=== PATIENT | female | born 1990 | race Caucasian/White ===

== ENCOUNTER 2022-11-08 14:01 | Inpatient (IN) | payer MEDICAID, SELFPAY ==
[2022-11-08] VITALS (48 sets, daily range): BP systolic 103–186; BP diastolic 69–106; PULSE 56–88; RESP 16–18; TEMP 36.6–36.9; O2SAT 97–99; BMI 31.1
[2022-11-08] MEDS: AMPICILLIN 2 GM in 0.9 % SODIUM CHLORIDE Mini-bag 100 ML IVPB (14:24)
[2022-11-08] MEDS: LACTATED RINGERS 1000 ML 1,000 ML 125 ML IV (14:24)
[2022-11-08] MEDS: LABETALOL HCL 5 MG/ML inj IVP ×2 (14:49→19:16)
[2022-11-08] MEDS: MAGNESIUM IV 4 GM/100 ML PIGGYBACK IVPB (14:57)
[2022-11-08 15:06] LABS: Hemoglobin* 11.8 gm/dL (12.0-16.0); Mean Corpuscular HGB Conc 34 gm/dL (32-36); Mean Corpuscular Hemoglobin 30 pg (26-34); Mean Corpuscular Volume 90 fL (80-100); Platelet Count* 229 K/uL (140-440); Red Blood Count 3.88 m/uL (4.00-5.20); White Blood Count* 7.26 K/uL (4.50-11.00)
[2022-11-08 15:10] LABS: Slide Review Reflex No
[2022-11-08] MEDS: LACTATED RINGERS 1000 ML 1,000 ML 75 ML IV (15:10)
--- NOTE | 2022-11-08 15:10 | P.OBHP_ITS ---
OB - H&P: HPI Labor/Induction History of Present Illness Time Seen by Provider: 15:00 Date Seen: 11/08/22 Chief Complaint: The patient is a 31 year old 3 para 2 at 39 3/7 by 9 4/7 wk US not c/w LMP, who presents to the Center reporting contractions started around 9am. Chief complaint: Maternity : 3 Para: 1 Narrative: Petra Holt is a 31 year old 3 para 2 at 39 3/7 by 9 4/7 wk US not c/w LMP, who presents to the Center reporting contractions started around 9am. She noted some vaginal bleeding this morning and initially went to [place] per OB RN recommendation due to bleeding. She was told it was normal bloody show and was found to be 3cm and given okay to come here for delivery. She reports her bp was elevated there. She does not have a hx of elevated bp or preeclampsia in this or prior . No headaches today. She reports few seconds of seeing circles earlier today but that resolved. No edema. no abdominal pain. No recent illness. History of Present Dating criteria: based on 1st trimester US only care: good care (Initial care at [facility], transferred to [facility] at 25wks. ) Ultrasounds: normal mid trimester US (but with EFW 98% on anatomy US) and other (Repeat US for growth 09/01/22 showed 30wks and EFW 66% (abdominal circumference noted to be 85%) and radiologist noted good interval growth) Medical complications: none Labs Blood type: A (+) positive Rubella: immune RPR/VDLR: nonreactive GBS status: positive HBsAG: negative Meds Home Medications and Allergies Allergies Allergy/AdvReac Type Severity Reaction Status Date / Time No Known Drug Allergies Allergy Verified 11/08/22 15:38 OB - H&P: Exam Physical Exam: Vital signs: Pulse BP 65 149/86 H 11/08/22 15:02 11/08/22 15:02 Constitutional: Constitutional: no acute distress and cooperative Routine HEENT Exam: Head: Present atraumatic, normal inspection and normocephalic Eye: Present normal appearance ENT: Present mucous membranes moist Routine Neck Exam: Neck: Present normal inspection; Absent lymphadenopathy Routine Respiratory Exam: Respiratory: Present CTA bilaterally Routine Cardiovascular Exam: Cardiovascular: RRR Routine Exam: Comments: Per RN, 5cm on arrival here (was 3cm when stopped at [place] [facility] 2 hours prior) Detailed Labor and Delivery Exam: Patient Gravid: Yes Dilation (cm): 5 Comments: Ctxs q3-5min Fetus (Single): Amniotic Membrane Status: intact Heart Rate Baseline: 130 Monitor Accelerations: Present Monitor Decelerations: None Nail Polish Brush Machine Feeder Variability: Moderate (6-25) Routine Extremities Exam: Extremities: Absent pedal edema Routine Psychiatric Exam: Present normal affect, normal thought process, cooperative, good insight and good judgment OB - Problem Based A/P Additional Plan (1) Severe preeclampsia: Status: Acute Plan: Severe preeclampsia by BP criteria. Labetalol given. preeclampsia labs drawn and pending. Magnesium started. labs [id number]. Already started on abx for GBS prophy laxis. discussed severe preeclampsia with pt and she reported good understanding and no ?'s. Dr Vegas notified. (2) Term : Status: Acute Delivery/Labor/Induction Plan Plan: expectant management
[2022-11-08 15:27] LABS: Blood Urea Nitrogen* 6 mg/dL (5-24); Creatinine* 0.4 mg/dL (0.5-1.5); Est. Creatinine Clearance* 162.65; Estimated Glomerular Filt Rate 136 ml/min
[2022-11-08 15:28] LABS: Alanine Aminotransferase* 15 U/L (4-35); Aspartate Amino Transferase* 23 U/L (12-35)
--- NOTE | 2022-11-08 17:54 | PM.OBPNL ---
Subjective Time Seen by Provider: 17:54 Date Seen: 11/08/22 Narrative: pt reports ctxs increasing. no headaches. no concerns. Just got up to bathroom and nurse going to recheck bp. Objective Vital Signs: Last Vital Signs Temp 97.9 F 11/08/22 16:40 Pulse 79 11/08/22 17:38 Resp 16 11/08/22 16:40 BP 160/101 H 11/08/22 17:38 Contractions Monitor mode: External Contraction Frequency: q3-5min Contraction pattern: Irregular Assessment Heart Rate Baseline: 130 Monitor Accelerations: Present Monitor Decelerations: None Plan Plan: Pt with severe preeclampsia by BP criteria, on magnesium, required 1 dose of labetalol. Now due for bp recheck due to most recent BP 160/101. Initial preeclamptic labs okay. recheck [id number] 4 hours of abx olivia be 7pm, will recheck cervix then, sooner if needed
[2022-11-08] MEDS: AMPICILLIN 1 GM in 0.9 % SODIUM CHLORIDE Mini-bag 100 ML IVPB ×2 (18:34→22:51)
--- NOTE | 2022-11-08 18:49 | P.OBPN_ITS ---
Subjective Time Seen by Provider: 18:50 Date Seen: 11/08/22 Narrative: Pt reports ctxs increasing. 1st dose abxs complete. She does not have any ?'s. Objective Vital Signs: Last Vital Signs Temp 97.9 F 11/08/22 16:40 Pulse 76 11/08/22 18:28 Resp 16 11/08/22 16:40 BP 131/79 11/08/22 18:28 Pelvic Exam Dilation (cm): 5 Effacement (%): 100 Station: -2 Comments: bulging bag Contractions Monitor mode: External Contraction Frequency: q4-5min Contraction pattern: Regular Contraction intensity: Moderate Assessment Assessment: early labor Heart Rate Baseline: 130 Orchestra Director Variability: Moderate (6-25) Monitor Decelerations: None Plan Plan: Cervix overall unchanged. Abx on board to 4+hours now, discussed AROM and pt in agreement. AROM with meconium stained fluid. Discussed with pt.
[2022-11-08 20:52] LABS: Hematocrit 36.2 % (33.0-51.0); Mean Corpuscular HGB Conc 33 gm/dL (32-36); Mean Corpuscular Hemoglobin 30 pg (26-34); Mean Corpuscular Volume 91 fL (80-100); Platelet Count* 250 K/uL (140-440); Red Blood Count 3.98 m/uL (4.00-5.20); White Blood Count* 8.11 K/uL (4.50-11.00)
[2022-11-08 20:55] LABS: Slide Review Reflex No
[2022-11-08 21:06] LABS: Creatinine* 0.6 mg/dL (0.5-1.5); Est. Creatinine Clearance* 108.43; Estimated Glomerular Filt Rate 124 ml/min
[2022-11-08 21:07] LABS: Alanine Aminotransferase* 15 U/L (4-35); Aspartate Amino Transferase* 23 U/L (12-35); Blood Urea Nitrogen* 8 mg/dL (5-24)
[2022-11-08] MEDS: OXYTOCIN 30 unit/500 ML in NS 30 UNIT/500 ML BAG IVPB (22:48)
[2022-11-09] VITALS (80 sets, daily range): BP systolic 78–181; BP diastolic 47–106; PULSE 68–100; RESP 14–16; TEMP 36.2–36.8; O2SAT 90–100
[2022-11-09] MEDS: AMPICILLIN 1 GM in 0.9 % SODIUM CHLORIDE Mini-bag 100 ML IVPB (02:47)
--- NOTE | 2022-11-09 02:52 | P.OBPN_ITS ---
Subjective Time Seen by Provider: 02:50 Date Seen: 11/09/22 Narrative: nursing notifed me of 1min decl down to 60bpm, resolved with position changes and stopping pitocin. pt requesting epidural. No headache or vision changes. Has required total 2 doses labetalol Objective Vital Signs: Last Vital Signs Temp 97.7 F 11/09/22 02:08 Pulse 75 11/09/22 02:44 Resp 16 11/08/22 19:20 BP 161/104 H 11/09/22 02:44 Pulse Ox 100 11/09/22 02:19 Pelvic Exam Dilation (cm): 8 Effacement (%): 100 Station: 0 Comments: per RN check Contractions Monitor mode: External Contraction Frequency: q2-3 Contraction pattern: Regular Contraction intensity: Strong/Firm Assessment Assessment: active labor Amniotic Membrane Status: AROM Heart Rate Baseline: 130 Paper Testing Supervisor Variability: Moderate (6-25) Monitor Accelerations: Present Monitor Decelerations: Prolonged (60sec decel down to 60bpm) Plan Plan: 31 year old 3 para 2 at 39 4/7 here in active labor with severe preeclampsia on magnesium, with recent prolonged decel, now recovered 1. Severe preclampsia by BP criteria: on magnesium, BP now mtg labetalol criteria, will just give 10mg dose now as prev down to 118/70 after labetolol and is getting epidural and do not want to bottom out bp. Will keep monitoring closely and redose as needed. Next set preeclamptic labs 3:45am 2. GBS+, on abxs 3. pt earlier required augmentation with pitocin to get back in active labor, now off due to decel. Will restart if needed once FHT's remain stable. discussed with pt.
[2022-11-09] MEDS: LABETALOL HCL 5 MG/ML inj 10 MG IVP (03:01)
[2022-11-09] MEDS: LIDOCAINE 2% (PF) 5 ML VIAL EPIDURAL (03:25)
[2022-11-09] MEDS: ROPIVACAINE 0.2% 100 ml 100 ML 12 MG EPIDURAL (03:25)
--- NOTE | 2022-11-09 03:33 | P.ANBPRC_ITS ---
[facility] Medical History (Updated 11/08/22 @ 15:44 by Cordelia Boo DO) depression ?F53.0 - depression (ICD-10) Surgical History (Updated 11/08/22 @ 15:30 by Cordelia Boo DO) History of ankle surgery ?Z98.890 - Other specified postprocedural states (ICD-10) Social History What is your current living situation?: I presently have a place to live Problems where you live: no known problems In the past 12 months, utilities in danger of being shut off: no In the past 12 mos, have been you worried that your food would run out before you had money to buy more?: never true In the past 12 mos, the food you bought just didn't last and you didn't have money to buy more?: never true Smoking Status: Never smoker How often does anyone, including family, friends and others, physically hurt you : never How often does anyone, including family, friends and others, insult or talk down to you: never How often does anyone, including family, friends and others, threaten you with harm: never How often does anyone, including family, friends and others, scream or curse at you: never Meds Home Medications and Allergies Home Medications Medication Instructions Recorded Confirmed Type escitalopram oxalate 20 mg tablet 20 mg PO QAM 11/08/22 11/08/22 History vitamin with calcium 1 tab PO DAILY 11/08/22 11/08/22 History no.72-iron 27 mg-folic acid 1 mg tablet ( Vitamins Plus Low Iron) Allergies Allergy/AdvReac Type Severity Reaction Status Date / Time No Known Drug Allergies Allergy Verified 11/08/22 15:38 Results Labs Labs: Laboratory Results - last 24 hr 11/08/22 11/08/22 15:00 20:45 WBC 7.26 8.11 RBC 3.88 L 3.98 L Hgb 11.8 L 12.0 Hct 35.0 36.2 MCV 90 91 MCH 30 30 MCHC 34 33 Plt Count 229 250 BUN 6 8 Creatinine 0.4 L 0.6 Estimated Creat Clear 162.65 108.43 Estimated GFR 136 124 AST 23 23 ALT 15 15 Blood Type A Positive Antibody Screen NEGATIVE Vital Signs Vital Signs: Last Vital Signs Temp 97.7 F 11/09/22 02:08 Pulse 90 11/09/22 03:32 Resp 16 11/08/22 19:20 BP 119/86 11/09/22 03:32 Pulse Ox 96 11/09/22 03:31 Weight: 77.111 kg Height: 157.48 cm Anesthesia Procedures Epidural Insertion Patient Location: OB Start Time: 03:00 Stop Time: 04:00 Start Date: 11/09/22 Stop Date: 11/09/22 Reason for Block: primary anesthetic Patient Position: sitting Performed By: Baldo Martinez Preanesthetic Checklist: IV checked, risks and benefits discussed, surgical consent, monitors and equipment checked, pre-op evaluation, timeout performed and anesthesia consent Prep: chlorhexidine gluconate Monitoring: blood pressure monitoring, quality improvement coordinator (rn), continuous pulse oximetry and heart rate Approach: midline Vertebral Space: lumbar (1-5) Needle Type: Tuohy needle Injection Technique: continuous catheter (catheter) Needle gauge: 17 Needle Length (cm): 10 cm Needle Insertion Depth (cm): 5 Catheter Gauge: 19 Catheter Type: multi-orifice Catheter at skin depth (cm): 10 Test Dose Result: negative and lidocaine 1.5% with epinephrine 1 to 200,000
[2022-11-09] MEDS: PHENYLEPHRINE 100 MCG/ML SYRINGE IVP ×3 (03:52→04:04)
[2022-11-09] MEDS: ePHEDrine sulfate 5 MG/ML inj 10 MG IVP ×6 (04:10→05:16)
--- NOTE | 2022-11-09 05:10 | P.OBPN_ITS ---
Subjective Date Seen: 11/09/22 Narrative: Pt has been having recurrent variables with contractions since epidural with low bp's and we have been monitoring closely. Has received multiple doses of phenylephrine/ephedrine. Epidural as turned off anesthesia and he rec waiting 15min and then seeing if can turn back on lower dose. She has good pain control. She initially had N/V with the hypotension but the N/V resolved. Pitocin remains off. She was rechecked by RN during this and remains 8cm. Objective Vital Signs: Last Vital Signs Temp 97.7 F 11/09/22 02:08 Pulse 95 11/09/22 05:07 Resp 16 11/08/22 19:20 BP 103/59 L 11/09/22 05:07 Pulse Ox 97 11/09/22 03:51 Pelvic Exam Dilation (cm): 8 Effacement (%): 100 Station: 0 Contractions Monitor mode: External Contraction pattern: Regular Contraction intensity: Strong/Firm Assessment Amniotic Membrane Status: AROM Heart Rate Baseline: 130 Motor Coach Chauffeur Variability: Moderate (6-25) Monitor Decelerations: Variable (60sec decel down to 60bpm) Plan Plan: Continues to have recurrent variables. Anesthesia recommended leaving epidural off for 15more minutes and see if improves further. Will also try amnioinfusion. Remains off pitocin and as of last check, unchanged. Likely need restart but need improved FHT's before restarting pitocin. Discussed all the above with pt.
[2022-11-09] MEDS: CEFAZOLIN 2 GM INJ IVP (05:55)
[2022-11-09 06:04] LABS: Hematocrit 38.3 % (33.0-51.0); Hemoglobin* 12.5 gm/dL (12.0-16.0); Mean Corpuscular HGB Conc 33 gm/dL (32-36); Mean Corpuscular Hemoglobin 30 pg (26-34); Mean Corpuscular Volume 93 fL (80-100); Platelet Count* 256 K/uL (140-440); Red Blood Count 4.13 m/uL (4.00-5.20); White Blood Count* 12.51 K/uL (4.50-11.00)
[2022-11-09 06:08] LABS: Slide Review Reflex No
[2022-11-09 06:13] LABS: Alanine Aminotransferase* 17 U/L (4-35); Aspartate Amino Transferase* 35 U/L (12-35); Blood Urea Nitrogen* 6 mg/dL (5-24); Creatinine* 0.5 mg/dL (0.5-1.5); Est. Creatinine Clearance* 130.12; Estimated Glomerular Filt Rate 129 ml/min
[2022-11-09] MEDS: LACTATED RINGERS 1000 ML 1,000 ML 75 ML IV ×3 (06:20→20:55)
--- NOTE | 2022-11-09 06:54 | SUR.OPER ---
EMERGENT CODE WHITE , VERBAL CONSENT W/D. MD NELY. PATIENT BROUGHT TO OR #5 PER CART BY OB RN's.? Patient positioned supine on OR #5 bed.? The perioperative?team supported arms bilaterally on arm boards.? Final approval of positioning by surgeon.
--- NOTE | 2022-11-09 07:18 | P.OBPRC_ITS ---
Procedure Time Seen by Provider: 05:53 Date of procedure: 11/09/22 Pre-op diagnosis: intolerance of labor Post-op diagnosis: same Procedure Done: only Will [facility] bill your pro fee for this procedure?: Yes Blood Loss Measurement Type: QBL Bakri Used: No Surgeon: Ascencion Anesthesia type: Epidural Findings: Thick meconium-stained fluid, live-born female , cephalic presentation, normal-appearing uterus with small anterior fundal subserosal fibroid, normal tubes and ovaries bilaterally. Procedure Description: PREOPERATIVE DIAGNOSES: 1. Intrauterine at 39 3/7 weeks' gestation. 2. Severe preeclampsia. 3. GBS positive. 4. intolerance of labor. POSTOPERATIVE DIAGNOSES: 1. Intrauterine at 39 3/7 weeks' gestation. 2. Severe preeclampsia. 3. GBS positive. 4. intolerance of labor. NAME OF PROCEDURE: Emergent primary low transverse section. SURGEON: Ascencion. ANESTHESIA: Epidural. TAP block. COMPLICATIONS: None. ESTIMATED BLOOD LOSS: 1019 mL. DRAINS: Tucker to gravity. FINDINGS: Live-born female , cephalic presentation, Apgars 6 and 8 at 1 and 5 minutes respectively. weight pending. Thick meconium stained amniotic fluid. Normal appearing uterus, tubes, and ovaries. INDICATIONS: The patient is a 31-year-old 3 para 2 who was admitted to the [facility] on 11/08/2022 in labor. She was diagnosed following admission was severe preeclampsia based on blood pressure criteria, and started on a magnesium sulfate drip. She was noted to be group B strep positive, and received IV antibiotics for group B strep prophylaxis. Her labor was managed by Dr. Boo. The patient received an epidural for analgesia at 3:18 a.m. on 11/09/2022. Subsequently, she had intermittent episodes of hypotension and received multiple doses of phenylephrine. This also precipitated intermittent severe variable decelerations of the heart rate tracing. I was called at 5:29 a.m. to come in to the hospital for a code white situation, following a 6 minute deceleration of the heart rate. I arrived into the operating room at 5:53 a.m., and found the patient in the left lateral recumbent position, with Tucker catheter already in place. heart tones were in the 120s by scalp electrode. The epidural was dosed for surgery, and the patient's abdomen was sterilely prepped. While I was scrubbing, there was another deceleration of the heart rate, so I made the decision to forego the vaginal prep and immediately prepare for surgery. I instructed a nurse to remove the scalp electrode, which was still attached to the scalp. PROCEDURE: Verbal consent was given for delivery. The patient was prepared and draped in the normal sterile fashion in the dorsal supine position with a leftward tilt. A Pfannenstiel skin incision was made with a scalpel at 0607. This incision was carried down to the underlying layer of fascia with the scalpel. The fascia was incised in the midline and the incision extended laterally. The superior and inferior aspects of the fascial incision were grasped with Haydee clamps, elevated and the underlying rectus muscles dissected off sharply. The rectus muscles were then in the midline. The anterior peritoneum was entered bluntly with a finger and stretched laterally. The Nehemias O retractor was then placed into the incision. The lower uterine segment was then incised in a transverse fashion with the scalpel. Upon entry into the uterus, thick meconium-stained amniotic fluid was noted. The uterine incision was extended laterally with blunt finger fractionation. The 's head was delivered atraumatically, followed by the remainder of the 's body at 0609. The nose and mouth were suctioned with the bulb suction. The cord was doubly clamped and cut, and the infant was handed off the field to Dr. Boo for evaluation. The placenta was delivered spontaneously with umbilical cord traction and fundal massage. The uterus was cleared of all clots and debris. There was some brief uterine atony that responded to bimanual massage. One thousand mL tranexamic acid was administered intravenously by anesthesia. The uterine incision was reapproximated in a running locking fashion with a 0 chromic suture. There was an extension of the hysterotomy incision on the left side into the left broad ligament that required 2 additional figure of X sutures for hemostasis of disrupted blood vessels. The broad ligament peritoneum was then reapproximated to close the defect in a running locking fashion with a 2-0 chromic suture. A 2nd layer of 0 chromic was used to imbricate the hysterotomy incision in a horizontal fashion. The gutters were irrigated and suctioned. The uterus was exteriorized, and the posterior aspect of the left broad ligament was inspected. Sade was placed over the lower posterior uterine serosa as it looked raw but was not actively bleeding. The uterus was returned to the abdomen. All instruments and retractors were removed. The anterior peritoneum was reapproximated in a running fashion with a 3-0 Vicryl suture. The subfascial tissues were carefully inspected and hemostasis assured. The pyramidalis muscles were actively bleeding where disrupted, and hemostasis was obtained with 2 figure of X sutures on the right side, and electrocautery on the left. Sade was placed over the muscles inferiorly as well. The fascia was reapproximated in a running fashion with a looped 0 Maxon suture. The subcutaneous tissues were copiously irrigated. Hemostasis was assured. The skin was closed in a subcuticular fashion with 4-0 Vicryl. Exofin surgical glue and dressing were applied. The patient tolerated the procedure well. Sponge, lap, needle, and instrument counts were reported as correct x2. A TAP block was administered by Anesthesia under ultrasound guidance at the conclusion of the procedure. The patient was taken to the recovery room, awake, and in stable condition. She did receive 2 grams of IV Ancef preoperatively. The infant was taken to the nursery for further evaluation and subsequent transfer to [facility]. Complications: None. Condition: stable Disposition: floor
--- NOTE | 2022-11-09 07:45 | P.NB_ITS ---
Nerve Block Nerve Block Time Seen by Provider: :22 Date Seen: 11/09/22 Type of block requested by surgeon for post-operative analgesia: TAP Side: bilateral Time out performed: Yes Verification of patient name: Yes Verification of date of : Yes Site marking: not applicable Name of person performing procedure: Baldo Martinez Continuous monitoring Was continuous monitoring of O2 sat, B/P, playground monitor, recorded every 15 minutes?: Yes Procedure Checklist: sterile prep, needles and gloves Ultrasound guided. Images saved: Yes Medications given in 5ml increments after negative aspiration: Marcaine %: 0.25 mL: 30 Needle gauge: 20 and Exparel mL: 10 Needle gauge: 20 Patient tolerated procedure well: Yes Block Charges Block Charge (with Pro Fee): TAP Bilateral Use of Ultrasound Machine for Block: Yes- US Guidance/pain block
--- NOTE | 2022-11-09 07:45 | P.ANES_ITS ---
Anesthesia Charges Start Date/Time Anesthesia Start Date: 11/09/22 Anesthesia Start Time: 05:44 Stop Date/Time Anesthesia Stop Date: 11/09/22 Anesthesia Stop Time: 07:32 Summary Emergency: OUTPATIENT DIETITIAN
[2022-11-09 10:05] LABS: Hematocrit 30.2 % (33.0-51.0); Hemoglobin* 10.1 gm/dL (12.0-16.0); Mean Corpuscular HGB Conc 33 gm/dL (32-36); Mean Corpuscular Hemoglobin 31 pg (26-34); Mean Corpuscular Volume 92 fL (80-100); Platelet Count* 234 K/uL (140-440); Red Blood Count 3.29 m/uL (4.00-5.20); Slide Review Reflex No; White Blood Count* 12.05 K/uL (4.50-11.00)
[2022-11-09 10:13] LABS: Alanine Aminotransferase* 14 U/L (4-35); Aspartate Amino Transferase* 24 U/L (12-35); Blood Urea Nitrogen* 6 mg/dL (5-24); Creatinine* 0.5 mg/dL (0.5-1.5); Est. Creatinine Clearance* 130.12; Estimated Glomerular Filt Rate 129 ml/min
[2022-11-09] MEDS: KETOROLAC 30 MG/ML inj IVP ×2 (12:42→18:35)
[2022-11-09 14:35] LABS: Hematocrit 26.9 % (33.0-51.0); Hemoglobin* 8.9 gm/dL (12.0-16.0); Mean Corpuscular HGB Conc 33 gm/dL (32-36); Mean Corpuscular Hemoglobin 31 pg (26-34); Mean Corpuscular Volume 92 fL (80-100); Platelet Count* 220 K/uL (140-440); Red Blood Count 2.92 m/uL (4.00-5.20); White Blood Count* 9.52 K/uL (4.50-11.00)
[2022-11-09 14:39] LABS: Slide Review Reflex No
[2022-11-09 14:54] LABS: Alanine Aminotransferase* 15 U/L (4-35); Aspartate Amino Transferase* 24 U/L (12-35); Blood Urea Nitrogen* 6 mg/dL (5-24); Creatinine* 0.5 mg/dL (0.5-1.5); Est. Creatinine Clearance* 130.12; Estimated Glomerular Filt Rate 129 ml/min
[2022-11-09] MEDS: ACETAMINOPHEN 500 MG TABLET 1000 MG PO (21:04)
--- NOTE | 2022-11-09 21:21 | PM.OBPNL ---
Subjective Time Seen by Provider: 05:20 Date Seen: 11/09/22 Narrative: Pt received epidural and started having hypotension and recurrent deep variables with contractions. RN's administered phenylephrine/ephedrine multiple times and then notified anesthesia. Epidural was turned off and anesthesia provider was called in to reassess. Pt was also tried in multiple positions and had IVF running. I spoke with anesthesia once he arrived and he recommended waiting another 15min to wear off further and reassess. FHT's appeared like they may be improving but then again had more variables so decision was make to try amnioinfusion. I went to place [facility] for amnioinfusion and during this we lost FHT and were unable to detect externally so [facility] placement was aborted and scalp placed instead. This confirmed FHTs were low and mom was placed on hands and knees. FHT's remained decreased for 6min. During this time a code white was called and code white protocol started. Discussed with pt need for emergent c/s and L&D team worked to get her back to the OR. FHT's did recover and were monitored in OR room while awaiting OR crew/surgeon. In the OR FHT's were okay between contractions but continued to drop significantly with contractions. Dr Vegas arrived and you can refer to her c/s note for details. Objective Vital Signs: Last Vital Signs Temp 97.5 F L 11/09/22 21:16 Pulse 96 11/09/22 21:16 Resp 16 11/09/22 21:16 BP 108/76 11/09/22 21:16 Pulse Ox 99 11/09/22 21:16 O2 Del Method Room Air 11/09/22 21:16 Pelvic Exam Dilation (cm): 8 Effacement (%): 100 Station: 0 Contractions Monitor mode: External Contraction pattern: Regular Contraction intensity: Strong/Firm Assessment Amniotic Membrane Status: AROM Heart Rate Baseline: 130 Business Team Leader Variability: Moderate (6-25) Monitor Decelerations: Variable (60sec decel down to 60bpm) Plan Plan: see above, c/s performed
[2022-11-10] VITALS (14 sets, daily range): BP systolic 109–136; BP diastolic 72–91; PULSE 72–87; RESP 16; TEMP 36.3–37; O2SAT 97–100
[2022-11-10] MEDS: SODIUM CHLORIDE 0.9 % (FLUSH) 10 ML SYRINGE IVF (00:58)
[2022-11-10] MEDS: KETOROLAC 30 MG/ML inj IVP ×3 (00:58→13:02)
[2022-11-10] MEDS: ACETAMINOPHEN 500 MG TABLET 1000 MG PO ×2 (05:41→12:10)
[2022-11-10 09:34] LABS: Hemoglobin* 8.1 gm/dL (12.0-16.0)
--- NOTE | 2022-11-10 10:02 | PM.OBPNVD1 ---
OB - PN:Subj Subjective Time Seen by Provider: 09:00 Date Seen: 11/10/22 Narrative: Overnight patient had no complaints in terms of her recovery. She has not had a chance to get in touch with her baby's care team this morning. She reports that her emergency CD was scary but understood the situation and felt that everything was well explained. Her pain is well controlled on oral pain medications. Would like an abdominal binder for when she ambulates more. She is not yet tolerating a regular diet. She has passed flatus. She is not yet ambulating without difficulty. Lochia is scant. She is urinating without mtz. Patient denies chest pain, SOB, n/v, headache, RUQ pain, vision changes, dizziness. OB - PN: Obj Exam Physical Exam: Vital signs: Temp Pulse Resp BP Pulse Ox O2 Del Method 97.8 F 87 16 116/81 99 Room Air 11/10/22 08:50 11/10/22 08:50 11/10/22 08:50 11/10/22 08:50 11/10/22 08:50 11/10/22 08:50 Narrative: Physical exam: General: No acute distress Psych: Alert and oriented x3, full affect HEENT: Normocephalic, atraumatic, oropharynx benign Heart: Regular rate and rhythm, no murmur rub or gallop Lungs: Clear to auscultation bilaterally Abdomen: Normoactive bowel sounds, soft, no rebound, or guarding. Appropriately tender at incision site. Dressing clean, dry and intact. Ice pack over dressing. Skin: No lesions or rashes Lower extremities: No edema or erythema. SCDs in place. Pelvic exam: Scant lochia on pad. OB - PN: Obj Data Labs Labs: Laboratory Results - last 24 hr 11/09/22 11/09/22 11/10/22 09:47 14:30 09:16 WBC 12.05 H 9.52 RBC 3.29 L 2.92 L Hgb 10.1 L 8.9 L 8.1 L Hct 30.2 L 26.9 L MCV 92 92 MCH 31 31 MCHC 33 33 Plt Count 234 220 BUN 6 6 Creatinine 0.5 0.5 Estimated Creat Clear 130.12 130.12 Estimated GFR 129 129 AST 24 24 ALT 14 15 OB - PN: A/P Delivery Assessment and Plan (1) Severe preeclampsia: Status: Acute Assessment and Plan: - s/p 24 hours of magnesium sulfate for seizure ppx - UOP adequate - BP : 90-110/50-80s - Denies any persistent headache, vision changes, SOB, right upper quadrant/epigastric pain, or rapidly expanding edema. - PreE labs wnl with the exception of Hbg of 8.1 (due to acute blood loss anemia) - Will continue to monitor for 24 hours after magnesium sulfate cessation (2) Acute blood loss anemia: Status: Acute Assessment and Plan: - Admission Hgb on 11/09: 12.5 - Intraoperative hemorrhage with EBL 1019 cc - Hgb today 8.1 - VSS - Patient is currently asymptomatic but has not ambulated much. Will continue to monitor - PO iron every other day
[2022-11-10] MEDS: OXYCODONE 5 MG TABLET PO ×2 (12:10→16:33)
[2022-11-10] MEDS: DOCUSATE SODIUM 100 MG CAPSULE PO (13:02)
[2022-11-10] MEDS: FERROUS SULFATE 325 MG TABLET 650 MG PO (16:32)
[2022-11-10] MEDS: IBUPROFEN 600 MG TABLET PO (18:45)
[2022-11-11 04:12] VITALS: BP 129/87; PULSE 79; RESP 16; TEMP 37.3; O2SAT 97
[2022-11-11] MEDS: OXYCODONE 5 MG TABLET PO ×2 (04:16→11:26)
[2022-11-11] MEDS: ACETAMINOPHEN 500 MG TABLET 1000 MG PO ×2 (04:17→11:26)
--- NOTE | 2022-11-11 07:44 | P.DS_ITS ---
DS: Providers Provider Time Seen by Provider: 07:44 Date Seen: 11/11/22 Date of admission: 11/08/22 14:01 Primary care physician: Carissa Connell MD Admitting Clinician: Cordelia Boo DO Consults: 11/11/22 05:56 Consult to Marketing Systems Manager [CONS] Routine Comment: Minimal home support, [place] in NICU Reason for Consult:: Social Service Consult Attending Physician on discharge: Claudia Vegas MD Date of Discharge: 11/11/22 DS: Diagnosis Discharge Diagnosis (1) Status post primary low transverse section: Status: Acute (2) Severe preeclampsia: Status: Acute (3) Acute blood loss anemia: Status: Acute Exam Narrative: Exam Narrative: VSS. ?Afebrile GENERAL APPEARANCE: ?normal affect, alert, no distress MOOD: ?appropriate HEENT: normocephalic, neck supple, full ROM CHEST: ?Symmetrical chest wall movement. ?Normal respiratory effort. ?Clear to auscultation HEART: ?regular rate and rhythm ABDOMEN: ?soft, non-tender. Uterine fundus is firm, 1 below Umbilicus, Midline and is appropriate for the stage of recovery. ?Bowel sounds present. EXTREMITIES: ?normal and no edema SKIN: warm, dry. ? ?Incision clean/dry/well approximated. ?No signs of infection noted. Const: Vital Signs, click to edit/add: Vital Signs - 24 hr 11/10/22 08:50 11/10/22 12:09 11/10/22 16:36 Temperature 97.8 F 97.6 F 97.5 F L Pulse Rate [Pulse Oximeter] 87 79 82 Respiratory Rate 16 16 16 Blood Pressure [Ri ght Arm] 116/81 121/87 127/84 Pulse Oximetry 99 99 100 Oxygen Delivery Me thod Room Air Room Air Room Air 11/10/22 21:16 11/10/22 23:44 11/11/22 04:12 Temperature 98.6 F 98.2 F 99.1 F Pulse Rate [Pulse Oximeter] 87 80 79 Respiratory Rate 16 16 16 Blood Pressure [Ri ght Arm] 136/91 H 120/81 129/87 Pulse Oximetry 100 97 97 Oxygen Delivery Me thod Room Air Room Air Room Air OB - DS: Summary Hospital Course Hospital Course: Deedee is a 31 y.o. G 3 P 2 who was admitted to [facility] & [facility] for labor. ?She had an emergency for distress. Baby was transferred to a NICU for possible meconium aspiration. ? The patient feels well. ?The pain is well controlled with current medications. ?She has no new complaints. ?She is pumping and planning on .? the patient has done well.? Vitals have been stable.? She has remained afebrile.? Has a good appetite, is tolerating a general diet. ?She is voiding without difficulty.? She is passing gas and has not had a bowel movement.? She is ambulating and denies any dizziness.? Has Small amount of rubra lochia. Problems: Severe preeclampsia, requiring magnesium sulfate plan: Discharge home with baby. Follow up in 2 weeks and 6 weeks. Planning to breastfeed, pumping, may follow up with if needed Acute anemia, continue iron supplementation for 6 weeks, every other day Severe preeclampsia -BPs stable at this time -Check BPs twice a day, call if over 140/90 -Follow up in 3-5 days Hx of depression, stable on lexapro -Aware to be seen if medication not working/needs adjustment Peripartum Data delivery method: Primary C/S; Labored Procedures: Procedures Operation Date: 11/09/22 05:45 Actual Procedure Side Surgeon p Section Claudia Vegas MD complications: none [place] Gender: Female Discharge Plan: Transferred to NICU Status at Discharge Functional status at discharge: independent ambulation Overall status at discharge: patient is progressing back to baseline Time Spent with Patient Time attestation: Total time spent providing and/or coordinating discharge services: Time spent: Less than 30 minutes Discharge Plan Discharge Disposition: Home, Self-Care Date of Admission: 11/08/22 14:01 Attending Provider on Discharge: Kiah Jones Primary Care Provider: Carissa Connell I Condition: Stable Anticipated Discharge Date/Time: 11/11/22 11:00 Discharge Medications: New docusate sodium 100 mg Capsule 100 mg PO BID PRNQty: 100 0RF Rx Instructions: Take 1 cap 1-2 times a day as needed for constipation ferrous sulfate 325 mg (65 mg iron) Tablet 650 mg PO Q48H Qty: 30 0RF ibuprofen 600 mg Tablet 600 mg PO Q6H PRN (Reason: Pain) Qty: 60 0RF oxycodone 5 mg Tablet 5 - 10 mg PO Q4H PRN (Reason: Pain) Qty: 20 0RF Continued escitalopram oxalate 20 mg tablet 20 mg PO QAM Vitamin Plus Low Iron 27 mg iron- 1 mg tablet 1 tab PO DAILY Discharge Orders: Discharge Order (Routine); Ordered 11/11/22 Ordered By: Kiah Jones Patient Education: OB Over the Counter Medication Information, OB /Breast Feeding Additional Instructions: Preeclampsia: -Continue to monitor blood pressures twice a day, call if 140/90 or higher. -Follow up in 3-5 days for a blood pressure check -Call for symptoms: headache, vision changes, pain on your right side : -Follow up in 2 weeks for an incision check -Follow up in 6 weeks -No driving while taking oxycodone and until you can comfortable slam on the breaks in an emergency and move to look around you Activity Level: Activity as Tolerated Discharge Diet: Regular Follow Up Appointments: Carissa Connell MD [Primary Care Provider] - Forms: [employer] Info Instructions
[2022-11-11 09:00] VITALS: BP 131/88; PULSE 76; RESP 16; TEMP 36.5; O2SAT 98
[2022-11-11] MEDS: IBUPROFEN 600 MG TABLET PO (09:06)
[2022-11-11] MEDS: DOCUSATE SODIUM 100 MG CAPSULE PO (09:06)
--- NOTE | 2022-11-11 10:00 | PC.SOCIAL ---
Met with pt in pt's room. Discussed concerns. Pt denies domestic abuse. Pt states that her significant other struggled with the medication that was administered during childbirth and felt like pt was getting too much medication. Pt states her significant other is working through this and has not visited her. Pt states significant other has visited her daughter in the [facility]. Pt has been checking in regularly to get updates on the from the other hospital was transferred to. Pt is excited to go to see her upon discharge from [facility]. Pt has a ride upon discharge and has car seat and other needed items for her . Discussed what supports pt has and pt stated that she lives with her mom and dad at their home and they are a big support to her and her family. Pt also has another child, an 8 year old boy. Her other child is currently with her parents. Pt currently has services through [facility] including WIC services. Pt denies needing any other resources. Informed pt if she is home and has any concerns or issues she is welcome to reach out to the social work department and we can assist with resources. Social work will follow up as needed.
[2022-11-11 11:00] VITALS: BP 137/79; PULSE 76; RESP 16; O2SAT 98
[2022-11-11 11:15] VITALS: BP 114/77
== END 2022-11-11 14:14 | disposition home or self-care (01) | DRG 787 ==
LOC: OB OUT 14:02 → OB 14:06
PROVIDERS: Admitting Provider Family Medicine; PCP Family Medicine; Visit Provider Obstetrics & Gynecology
PROC: 10D00Z1 Extraction of Products of Conception, Low, Open Approach (ICD-10-PCS; CPT 59514; principal; 2022-11-09 05:30)
DX: O14.14 Severe pre-eclampsia complicating childbirth (principal); D62 Acute posthemorrhagic anemia; O76 Abnormality in fetal heart rate and rhythm complicating labor and delivery; I95.89 Other hypotension; O90.81 Anemia of the puerperium; O77.0 Labor and delivery complicated by meconium in amniotic fluid; O99.824 Streptococcus B carrier state complicating childbirth; O34.13 Maternal care for benign tumor of corpus uteri, third trimester; D25.2 Subserosal leiomyoma of uterus; O99.344 Other mental disorders complicating childbirth; F32.A Depression, unspecified; G89.18 Other acute postprocedural pain; Z3A.39 39 weeks gestation of pregnancy; Z37.0 Single live birth
CPT/HCPCS: 01967; 01968; 36415; 64488; 76942; 82565; 82570; 83735; 84156; 84450; 84460; 84520; 85018; 85027; 86850; 86900; 86901; 88307; 99140; A9270; C9290; J0290; J0665; J0690; J1885; J2274; J2371; J2405; J2590; J2795; J3010; J3475; J7120